=== PATIENT | male | born 1970 ===

== ENCOUNTER → 2017-11-28 | Outpatient (CLI) | payer BC ==
[~2017-11-28] MED LIST: CIPR1TAB11 PO; OXYC-57 PO; PEDICHW50 PO
--- NOTE | 2017-11-28 15:51 | DIAGNOSTIC IMAGING REPORT ---
HEAD WITHOUT CONTRAST (CT) CLINICAL HISTORY: 47 years-old Male with HEADACHE. Acute right-sided headache TECHNIQUE: Multiple axial CT images of the head were obtained without contrast. A dose lowering technique was utilized adhering to the principles of ALARA. CT DOSE: 776.86 mGycm COMPARISON: None. FINDINGS: No acute intracranial hemorrhage, midline shift, intracranial mass, hydrocephalus, territorial ischemia or abnormal extra-axial collection. The calvarium is intact. The paranasal sinuses, mastoid air cells, and middle ear cavities are clear. IMPRESSION: No acute intracranial abnormality. The above report was generated using voice recognition software. It may contain grammatical, syntax or spelling errors. Electronically signed by: Cleve Valencia M.D. 11/28/2017 3:49 PM Dictated Date/Time: 11/28/2017 3:48 PM
== END | disposition home or self-care (01) ==
LOC: C.CTS 15:34
PROVIDERS: ATTEND Physician Assistant
DX: G44.53 Primary thunderclap headache (principal)

== ENCOUNTER 2017-12-01 16:11 | Emergency (ER) | payer BC ==
[~2017-12-01] VITALS: Ht 180.3 cm; Wt 126.6 kg
[2017-12-01 16:14] VITALS: Ht 180.3 cm; Wt 126.6 kg
[2017-12-01] MEDS ORDERED: DiphenhydrAMINE HCL 50 MG/ML VIAL IV STA (16:24)
[2017-12-01] MEDS ORDERED: PROCHLORPERAZINE 5 MG/ML 2 ML VIAL IV STA (16:24)
[2017-12-01] MEDS ORDERED: SODIUM CHLORIDE 0.9% 1000ML 1,000 ML IV STA ×2 (16:24→18:57)
[2017-12-01] MEDS ORDERED: ACETAMINOPHEN 500 MG TAB PO STA (16:24)
[2017-12-01] MEDS ORDERED: MAGNESIUM SULFATE 1GM / D5W 1 GM BAG IV STA (16:24)
--- NOTE | 2017-12-01 16:31 | EMERGENCY ROOM VISIT NOTE ---
History Report prepared by Annalee: Marcell Orona Under the Supervision of: Dr. Ronny Waller M.D. First contact with patient: 16:17 Chief Complaint: HEADACHE Stated Complaint: HEADACHE History of Present Illness The patient is a 47 year old male who presents to the Emergency Room with complaints of a waxing and waning, excruciating, right-sided headache beginning 6 days ago. The patient states he has not had a headache like this before. He reports he started doing exercises every morning. The patient notes he was doing push-ups when his headache suddenly began. He states he stopped doing them because his headache was too severe. The patient notes his symptoms have varied and the peaks have been getting worse and worse. He states his pain radiates from his right eye to the back of his right ear and head. He notes it does not radiate to the left side. The patient reports he has been taking Tylenol and Advil together for his symptoms. He notes it reduces his symptoms to a 3/10 and never completely alleviates it, and the last time he took medication was yesterday. The patient states he was evaluated by the local [facility] and had a negative CT scan. He reports he was evaluated again today and was told he may need an MRI. The patient notes he woke up from a nap today and his headache was excruciating. He states he could not handle it anymore and wanted to be evaluated in the ED. The patient reports he had a few ticks on him a few weeks ago after hiking on a trail. He denies neck pain, doing anything that stressed his neck, taking medication daily, rashes, and abdominal pain. 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 He states he has a history of HTN several years ago, lost weight, and his blood pressure went down. Source of History: patient Onset: 6 days ago Position: head (right-sided) Symptom Intensity: excruciating Quality: ache Timing: waxes/wanes Modifying Factors (Relieving): tylenol, other (Advil, both take it to a 3/10 ) Associated Symptoms: No neck pain, No abdominal pain, No rash Note: Associated symptoms: tick exposure a few weeks ago Denies: doing anything to stress his neck Review of Systems See HPI for pertinent positives & negatives. A total of 10 systems reviewed and were otherwise negative. Past Medical & Surgical Medical Problems: (1) HTN (hypertension) Surgical Problems: (1) History of appendectomy (2) History of cholecystectomy Family History Cancer Diabetes mellitus Gallbladder disease Heart disease Hypertension Kidney disease Kidney stones Social History Smoking Status: Never Smoker Smokeless Tobacco Use: No Alcohol Use: occasionally Marital Status: Housing Status: lives with family Occupation Status: employed Current/Historical Medications No Active Prescriptions or Reported Meds Allergies Coded Allergies: No Known Allergies (Unverified , 10/13/12) Physical Exam Vital Signs Date Time Temp Pulse Resp B/P (MAP) Pulse Ox O2 Delivery O2 Flow Rate FiO2 12/01/17 20:40 64 18 127/85 96 12/01/17 19:19 36.8 57 18 135/83 99 Room Air 12/01/17 18:24 71 18 147/89 95 Room Air 12/01/17 17:03 69 20 144/82 97 Room Air 12/01/17 17:02 67 12/01/17 16:14 36.5 62 20 198/93 98 Room Air Physical Exam GENERAL: Awake, alert, well-appearing, in no acute distress HENT: Normocephalic, atraumatic. Oropharynx unremarkable. No evidence of meningitis or encephalitis on exam. EYES: Normal conjunctiva. Sclera non-icteric. NECK: Supple. No nuchal rigidity. FROM. No JVD. RESPIRATORY: Clear to auscultation. CARDIAC: Regular rate, normal rhythm. Extremities warm and well perfused. Pulses equal. ABDOMEN: Soft, non-distended. No tenderness to palpation. No rebound or guarding. No masses. RECTAL: Deferred. MUSCULOSKELETAL: Chest examination reveals no tenderness. The back is symmetrical on inspection without obvious abnormality. There is no CVA tenderness to palpation. No joint edema. LOWER EXTREMITIES: Calves are equal size bilaterally and non-tender. No edema. No discoloration. NEURO: Normal sensorium. No sensory or motor deficits noted. SKIN: No rash or jaundice noted. Medical Decision & Procedures ER Provider Diagnostic Interpretation: Radiology results as stated below per my review and radiologist interpretation: MRA NECK COMBO HISTORY: Headache. Mental status change. Pt c/o severe headache TECHNIQUE: [id number] and gadolinium-enhanced MRA of the neck was performed both before and after the intravenous administration of contrast. All measurements were calculated based on NASCET criteria. COMPARISON STUDY: None. FINDINGS: The aortic arch and proximal great vessels are widely patent. There is no significant stenosis, occlusion, or dissection identified within the bilateral common carotid, internal carotid, or vertebral arteries. IMPRESSION: No significant stenosis, occlusion, or dissection identified within the carotid or vertebral arteries. The above report was generated using voice recognition software. It may contain grammatical, syntax or spelling errors. Electronically signed by: Alex Hurtado M.D. 12/01/2017 6:41 PM Dictated Date/Time: 12/01/2017 6:39 PM MRA HEAD WITHOUT CONTRAST HISTORY: Headache Pt c/o severe headache TECHNIQUE: 3-D [id number] MRA of the brain was performed without contrast. COMPARISON STUDY: None. FINDINGS: Visualized intracranial internal carotid arteries, distal vertebral arteries, and basilar artery are widely patent. 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 IMPRESSION: No significant stenosis, occlusion, or aneurysm within the [place]. The above report was generated using voice recognition software. It may contain grammatical, syntax or spelling errors. Electronically signed by: Alex Hurtado M.D. 12/01/2017 5:49 PM Dictated Date/Time: 12/01/2017 5:47 PM Brain MRI WITH AND WITHOUT CONTRAST HISTORY: Pt c/o severe headache TECHNIQUE: Multiplanar multisequence MRI of the brain was performed both before and after the intravenous administration of contrast. COMPARISON STUDY: Head CT 11/28/2017. FINDINGS: There are no areas of restricted diffusion to suggest acute infarction. The midline structures are intact. The paranasal sinuses are clear. The mastoid air cells are clear. The ventricles and sulci are within normal limits for age. There is no mass, hematoma, midline shift. The major vascular flow-voids at the skull base are well maintained. Postcontrast sequences show no areas of abnormal enhancement. IMPRESSION: No acute intracranial abnormality. Electronically signed by: Efrain Joyce M.D. 12/01/2017 6:44 PM Dictated Date/Time: 12/01/2017 6:37 PM Laboratory Results 12/01/17 16:40 Red Blood Count 5.26, Mean Corpuscular Volume 86.5, Mean Corpuscular Hemoglobin 29.8, Mean Corpuscular Hemoglobin Concent 34.5, Mean Platelet Volume 10.4, Neutrophils (%) (Auto) 60.8, Lymphocytes (%) (Auto) 27.3, Monocytes (%) (Auto) 9.1, Eosinophils (%) (Auto) 1.6, Basophils (%) (Auto) 0.6, Neutrophils # (Auto) 4.28, Lymphocytes # (Auto) 1.92, Monocytes # (Auto) 0.64, Eosinophils # (Auto) 0.11, Basophils # (Auto) 0.04 12/01/17 16:40 Test 12/01/17 16:40 12/01/17 17:06 12/01/17 18:55 White Blood Count 7.03 K/uL (4.8-10.8) Red Blood Count 5.26 M/uL (4.7-6.1) Hemoglobin 15.7 g/dL (14.0-18.0) Hematocrit 45.5 % (42-52) Mean Corpuscular Volume 86.5 fL (80-100) Mean Corpuscular Hemoglobin 29.8 pg (25-34) Mean Corpuscular Hemoglobin Concent 34.5 g/dl (32-36) Platelet Count 184 K/uL (130-400) Mean Platelet Volume 10.4 fL (7.4-10.4) Neutrophils (%) (Auto) 60.8 % Lymphocytes (%) (Auto) 27.3 % Monocytes (%) (Auto) 9.1 % Eosinophils (%) (Auto) 1.6 % Basophils (%) (Auto) 0.6 % Neutrophils # (Auto) 4.28 K/uL (1.4-6.5) Lymphocytes # (Auto) 1.92 K/uL (1.2-3.4) Monocytes # (Auto) 0.64 K/uL (0.11-0.59) Eosinophils # (Auto) 0.11 K/uL (0-0.5) Basophils # (Auto) 0.04 K/uL (0-0.2) RDW Standard Deviation 45.2 fL (36.4-46.3) RDW Coefficient of Variation 14.5 % (11.5-14.5) Immature Granulocyte % (Auto) 0.6 % Immature Granulocyte # (Auto) 0.04 K/uL (0.00-0.02) Erythrocyte Sedimentation Rate 5 mm/hr (0-14) Anion Gap 5.0 mmol/L (3-11) Est Creatinine Clear Calc Drug Dose 113.3 ml/min Estimated GFR () 93.6 Estimated GFR (Non- 80.7 BUN/Creatinine Ratio 15.6 (10-20) Calcium Level 8.9 mg/dl (8.5-10.1) Total Bilirubin 0.5 mg/dl (0.2-1) Direct Bilirubin 0.1 mg/dl (0-0.2) Aspartate Amino Transf (AST/SGOT) 19 U/L (15-37) Alanine Aminotransferase (ALT/SGPT) 42 U/L (12-78) Alkaline Phosphatase 60 U/L (45-117) C-Reactive Protein 0.34 mg/dl (0-0.29) Total Protein 7.4 gm/dl (6.4-8.2) Albumin 3.8 gm/dl (3.4-5.0) Lipase 319 U/L (73-393) Lyme Disease IgG Antibody NEG (NEG) Lyme Disease IgM Antibody NEG (NEG) Monoscreen NEG (NEG) Urine Color YELLOW Urine Appearance CLEAR (CLEAR) Urine pH 6.5 (4.5-7.5) Urine Specific Raymond 1.018 (1.000-1.030) Urine Protein NEG (NEG) Urine Glucose (UA) NEG (NEG) Urine Ketones NEG (NEG) Urine Occult Blood NEG (NEG) Urine Nitrite NEG (NEG) Urine Bilirubin NEG (NEG) Urine Urobilinogen NEG (NEG) Urine Leukocyte Esterase NEG (NEG) CSF Color COLORLESS CSF Appearance CLEAR CSF WBC 1 /uL (0-5) CSF RBC 1 /uL (0) CSF Xanthrochromic NO XANTHOCHROMIA CSF Cell Count Tube # 4 CSF Chemistry Tube # 2 CSF Glucose 53 mg/dl (40-70) CSF Total Protein 35.8 mg/dl (15.0-45.0) Labs reviewed by ED physician. Medications Administered Medications (Trade) Dose Ordered Sig/Laura Route Start Time Stop Time Status Last Admin Dose Admin Prochlorperazine Edisylate (Compazine Inj) 10 mg NOW STAT IV 12/01/17 16:24 12/01/17 16:28 DC 12/01/17 16:42 10 MG Diphenhydramine HCl (Benadryl Inj) 50 mg NOW STAT IV 12/01/17 16:24 12/01/17 16:28 DC 12/01/17 16:42 50 MG Acetaminophen (Tylenol Tab) 1,000 mg NOW STAT PO 12/01/17 16:24 12/01/17 16:28 DC 12/01/17 16:43 1,000 MG Magnesium Sulfate (Magnesium Sulfate 1gm / D5W) 1 gm NOW STAT IV 12/01/17 16:24 12/01/17 16:28 DC 12/01/17 16:42 1 GM Sodium Chloride 1,000 ml @ 999 mls/hr Q1H1M STAT IV 12/01/17 16:24 12/01/17 17:24 DC 12/01/17 16:45 999 MLS/HR Lidocaine HCl (Buffered Lidocaine 1% Inj) 20 ml ONE STAT INFIL 12/01/17 16:59 12/01/17 17:00 DC 12/01/17 18:46 20 ML Sodium Chloride 1,000 ml @ 999 mls/hr Q1H1M STAT IV 12/01/17 18:57 12/01/17 19:57 DC 12/01/17 19:18 999 MLS/HR Valproate Sodium 500 mg/Dextrose 55 ml @ 55 mls/hr NOW STAT IV 12/01/17 18:57 12/01/17 19:56 DC 12/01/17 19:15 55 MLS/HR Dexamethasone Sodium Phosphate (Dexamethasone Inj Pf) 10 mg STK-MED ONCE .ROUTE 12/01/17 19:10 12/01/17 19:11 DC 12/01/17 19:15 10 MG Procedure Lumbar Puncture Indication: Headache. Verbal consent was obtained after the risks and benefits were explained, including but not limited to headache, bleeding/clotting, scarring, infection, pain, and bone/joint/nerve damage. At this time, the risks of the procedure are less than the risks of NOT performing the procedure. A time out was taken and the correct patient and site identified. The patient was placed in the upright position and the back was prepped with betadine and draped in the standard fashion. The L3 intervertebral space was identified, anesthetized locally with 1 % lidocaine without epinephrine, and the spinal needle was inserted through the skin with the bevel parallel to the dural fibers. The needle was carefully advanced into the lumbar cistern and 4 tubes of clear CSF was obtained. The stylet was replaced and the needle was removed. A bandaid was placed and the patient was placed in the supine position. The patient tolerated the procedure well and there were no complications. ED Course 1619: Past medical records reviewed. The patient was evaluated in room C06. A complete history and physical examination was performed. 1624: Ordered Sodium Chloride 1000 ml @ 999 mls/hr IV, Magnesium Sulfate 1gm IV , Acetaminophen 1000mg PO, Benadryl Inj 50 mg IV, Compazine Inj 10mg IV 1659: Ordered Lidocaine HCl 20ml INFIL 1700: I reevaluated the patient. I attempted to perform an LP. MRI was ready for him, so I did not complete the LP. 1834: The patient returned from MRI, and I reevaluated him. I discussed the risks and benefits of an LP with the patient. He verbalized agreement and signed the necessary paperwork. I completed the LP. Please refer to the procedure note for more information. 1857: Ordered Valproate Sodium 500 mg/Dextrose 55 ml @ 55 mls/hr, Sodium Chloride 1000 ml @ 999 mls/hr IV 1910: Ordered Dexamethasone Sodium Phosphate 10mg .ROUTE 2000: Upon reexamination the patient is feeling much better. I discussed results and treatment plan with the patient. He verbalizes agreement and understanding. The patient is ready for discharge. Medical Decision Etiologies such as migraine headache, meningitis, sinusitis, CO exposure, ICH, SAH, infection, tumor, headache, sinus thrombosis, arterial dissection, as well as others were entertained. This is a 47-year-old male who presents the emergency department with the worst headache of his life that has been ongoing for the past week. The patient had a CAT scan of the head done 3 days ago and was sent here by his primary care physician's office for an MRI. I will note that the patient is afebrile. Upon arrival to the emergency department the patient is hypertensive however this normalized without doing anything. In addition the patient does not have any evidence of meningitis or encephalitis on examination. Patient was sent for an MRI MRA of the head, this did not show any acute process in addition he does not have an elevation in his white blood cell count. An IV was established, the patient was given a migraine cocktail which included Tylenol, normal saline bolus, Compazine and Benadryl. Repeat examination revealed improvement in the patient's symptoms. Using shared medical decision making with both the patient and his and based on the fact that the patient is having the worst headache of his life without any explanation we decided to perform a lumbar puncture. The patient willingly signed a consent which was placed on the chart. LP was performed as above. The patient was then given Decadron as well as valproic acid along with further normal saline bolus. Repeat examination revealed improvement the patient's symptoms. As the patient's LP appears to be normal I feel he can be safely discharged home. I strongly recommend he follow- up with neurology. Patient was in agreement with the treatment plan. Medication Reconcilliation Current Medication List: was personally reviewed by me Blood Pressure Screening Patient's blood pressure: Elevated blood pressure Blood pressure disposition: Referred to PCP Impression Primary Impression: Headache Scribe Attestation The scribe's documentation has been prepared under my direction and personally reviewed by me in its entirety. I confirm that the note above accurately reflects all work, treatment, procedures, and medical decision making performed by me. Departure Information Dispostion Home / Self-Care Prescriptions No Active Prescriptions or Reported Meds Referrals Micky Rivera D.O. (PCP) Brian Leggett M.D. Forms HOME CARE DOCUMENTATION FORM, IMPORTANT VISIT INFORMATION Patient Instructions ED Lumbar Puncture Explanation, ED Lumbar Puncture Normal, Headache Pain, My [facility] Additional Instructions Increase fluids next 48 hours Return for fevers, severe head pain Follow up with DR Leggett's office You have been examined and treated today on an emergency basis only. This is not a substitute for, or an effort to provide, complete comprehensive medical care. It is impossible to recognize and treat all injuries or illnesses in a single emergency department visit. It is therefore important that you follow up closely with Dr Rivera. Call as soon as possible for an appointment. Thank you for your time and consideration. I look forward to speaking with you again soon. Please don't hesitate to call us if you have any questions. Problem Qualifiers Primary Impression: Headache Headache type: unspecified Headache chronicity pattern: unspecified pattern Intractability: not intractable Qualified Codes: R51 - Headache
[2017-12-01 16:54] LABS: BASO % 0.6 %; BASO ABS # 0.04 K/uL (0-0.2); EOS % 1.6 %; EOS ABS # 0.11 K/uL (0-0.5); HEMATOCRIT 45.5 % (42-52); HEMOGLOBIN 15.7 g/dL (14.0-18.0); IG# 0.04 K/uL (0.00-0.02); LYMPH % 27.3 %; LYMPH ABS # 1.92 K/uL (1.2-3.4); MEAN CELL VOLUME 86.5 fL (80-100); MEAN CORPUSCULAR HEMOGLOBIN 29.8 pg (25-34); MEAN CORPUSCULAR HGB CONC 34.5 g/dl (32-36); MEAN PLATELET VOLUME 10.4 fL (7.4-10.4); MONO % 9.1 %; MONO ABS # 0.64 K/uL (0.11-0.59); NEUT % 60.8 %; NEUT ABS # 4.28 K/uL (1.4-6.5); PLATELET COUNT 184 K/uL (130-400); RED CELL DISTRIBUTION WIDTH CV 14.5 % (11.5-14.5); RED CELL DISTRIBUTION WIDTH SD 45.2 fL (36.4-46.3); WHITE BLOOD COUNT 7.03 K/uL (4.8-10.8)
[2017-12-01] MEDS ORDERED: XYLOCAINE 1%/SOD BICARB 20 ML VIAL INFIL STA (16:59)
[2017-12-01 17:11] LABS: ALBUMIN 3.8 gm/dl (3.4-5.0); CALCIUM 8.9 mg/dl (8.5-10.1); CREATININE 1.08 mg/dl (0.60-1.40); POTASSIUM 3.6 mmol/L (3.5-5.1)
[2017-12-01 17:14] LABS: TOTAL PROTEIN 7.4 gm/dl (6.4-8.2)
--- NOTE | 2017-12-01 17:50 | DIAGNOSTIC IMAGING REPORT ---
MRA HEAD WITHOUT CONTRAST HISTORY: Headache Pt c/o severe headache TECHNIQUE: 3-D [id number] MRA of the brain was performed without contrast. COMPARISON STUDY: None. FINDINGS: Visualized intracranial internal carotid arteries, distal vertebral arteries, and basilar artery are widely patent. 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 IMPRESSION: No significant stenosis, occlusion, or aneurysm within the [place] of [place]. The above report was generated using voice recognition software. It may contain grammatical, syntax or spelling errors. Electronically signed by: Alex Hurtado M.D. 12/01/2017 5:49 PM Dictated Date/Time: 12/01/2017 5:47 PM
[2017-12-01 18:13] LABS: MONOSPOT NEG (NEG)
[2017-12-01] MEDS ORDERED: GADAVIST IV PRN (18:30)
--- NOTE | 2017-12-01 18:42 | DIAGNOSTIC IMAGING REPORT ---
MRA NECK COMBO HISTORY: Headache. Mental status change. Pt c/o severe headache TECHNIQUE: [id number] and gadolinium-enhanced MRA of the neck was performed both before and after the intravenous administration of contrast. All measurements were calculated based on NASCET criteria. COMPARISON STUDY: None. FINDINGS: The aortic arch and proximal great vessels are widely patent. There is no significant stenosis, occlusion, or dissection identified within the bilateral common carotid, internal carotid, or vertebral arteries. IMPRESSION: No significant stenosis, occlusion, or dissection identified within the carotid or vertebral arteries. The above report was generated using voice recognition software. It may contain grammatical, syntax or spelling errors. Electronically signed by: Alex Hurtado M.D. 12/01/2017 6:41 PM Dictated Date/Time: 12/01/2017 6:39 PM
--- NOTE | 2017-12-01 18:45 | DIAGNOSTIC IMAGING REPORT ---
Brain MRI WITH AND WITHOUT CONTRAST HISTORY: Pt c/o severe headache TECHNIQUE: Multiplanar multisequence MRI of the brain was performed both before and after the intravenous administration of contrast. COMPARISON STUDY: Head CT 11/28/2017. FINDINGS: There are no areas of restricted diffusion to suggest acute infarction. The midline structures are intact. The paranasal sinuses are clear. The mastoid air cells are clear. The ventricles and sulci are within normal limits for age. There is no mass, hematoma, midline shift. The major vascular flow-voids at the skull base are well maintained. Postcontrast sequences show no areas of abnormal enhancement. IMPRESSION: No acute intracranial abnormality. Electronically signed by: Efrain Joyce M.D. 12/01/2017 6:44 PM Dictated Date/Time: 12/01/2017 6:37 PM
[2017-12-01] MEDS ORDERED: DEXAMETHASONE INJ 10 MG in SYRINGE 0 ML IV STA (18:57)
[2017-12-01] MEDS ORDERED: VALPROATE SOD IV 500 MG in DEXTROSE 5% 50ML 50 ML IV STA (18:57)
[2017-12-01] MEDS ORDERED: DEXAMETHASONE **PF** INJ 10 MG/ML VIAL ONE (19:10)
[2017-12-01 19:19] VITALS: TEMP 36.8
[2017-12-01 19:23] LABS: CSF GLUCOSE 53 mg/dl (40-70); CSF TOTAL PROTEIN 35.8 mg/dl (15.0-45.0)
[2017-12-01 20:40] VITALS: BP 127/85; PULSE 64; O2SAT 96
== END 2017-12-01 20:40 | disposition home or self-care (01) ==
LOC: C.EDB 16:12 → C.EDC 20:40
DX: R51 Headache (principal)

== ENCOUNTER → 2017-12-16 | Outpatient (CLI) | payer BC | END | disposition home or self-care (01) | LOC: C.LAB1850 14:54 | PROVIDERS: ATTEND Internal Medicine Infectious Disease | DX: R51 Headache (principal) ==